=== PATIENT | male | born 1975 | race Caucasian/White ===

== ENCOUNTER 2020-10-14 08:58 | Emergency (ER) | payer BC | END 2020-10-14 10:43 | disposition home or self-care (01) | LOC: ERS 08:58 | DX: S61.451A Open bite of right hand, initial encounter (principal); S81.851A Open bite, right lower leg, initial encounter; Z79.899 Other long term (current) drug therapy; W54.0XXA Bitten by dog, initial encounter | CPT/HCPCS: 99281 ==